=== PATIENT | female | born 1945 | race Hispanic/Latino ===

== ENCOUNTER 2017-01-17 14:41 | Inpatient (IN) | payer MEDICARE ==
[2017-01-17 16:34] LABS: Basophils % (Auto) 0.6 % (0.0-1.8); Eosinophils % (Auto) 1.3 % (0.0-4.3); Hematocrit 41.8 % (30.3-42.9); Hemoglobin 13.8 gm/dl (10.1-14.3); Mean Corpuscular HGB Conc 33 % (30-34); Mean Corpuscular Hemoglobin 30 pg (28-32); Mean Corpuscular Volume 89 fl (79-97); Platelet Count 245 K/mm3 (140-440); Red Blood Count 4.67 M/mm3 (3.65-5.03); Red Cell Distribution Width 14.4 % (13.2-15.2); White Blood Count 9.2 K/mm3 (4.5-11.0)
--- NOTE | 2017-01-17 16:34 | Emergency Department Report ---
Entered by DANICA GEORGE, acting as scribe for HEAVENLY JAIMES PA. Chief Complaint: Extremity Injury, Upper Stated Complaint: LEFT ARM PAIN/NUMBNESS/DIZZINESS - HPI History of Present Illness: Pt c/o left arm numbness and pain that began today at 12:00. Rates left arm pain a 5/10 in severity. Pt also c/o dizziness. Pt states she felt pressure in her head during the onset of symptoms, but currently denies pressure in her head. Reports SOB. Denies headache. Denies vision changes. Denies confusion. Denies altered mental status. Took 2 tablets of aspirin with no relief of symptoms. PMHx of HTN and hypothyroidism PSHx of cardiac pacemaker. Denies ID and CVA Notes PFHx of heart problems - ROS Review of Systems: All systems are negative unless stated in HPI above. - Exam Vital Signs: Vital Signs 01/17/17 15:41 Temperature 98.2 F Pulse Rate 82 Respiratory 18 Rate Blood Pressure 187/97 O2 Sat by Pulse 98 Oximetry Physical Exam: General: 71 y/o female that is well nourished, well developed, nontoxic in appearance, and in no acute distress Cardiovascular: S1/S2 regular rate and rhythm Respiratory: Clear to auscultation bilaterally, no rhonchi, wheezes, or rales. Neurologic: No focal deficit. 5/5 strength in all extremities. patient is alert and oriented to place, person and time. patient is ambulatory with normal gait and has fluid speech. MSE screening note: Focused history and physical exam performed. Due to findings the following was ordered: ED Medical Decision Making - Medical Decision Making Patient was seen by provider in triage area. ED Disposition for MSE Condition: Stable This documentation as recorded by the scribe,DANICA GEORGE,accurately reflects the service I personally performed and the decisions made by FIONA carbajal AHMAD R. PA.
[2017-01-17 16:48] LABS: Anion Gap 22 mmol/L; Blood Urea Nitrogen 16 mg/dL (7-17); Calcium 9.6 mg/dL (8.4-10.2); Carbon Dioxide 22 mmol/L (22-30); Chloride 98.2 mmol/L (98-107); Glucose 91 mg/dL (65-100); Potassium 4.3 mmol/L (3.6-5.0); Sodium 138 mmol/L (137-145)
[2017-01-17 17:52] LABS: Creatine Kinase MB 6.7 ng/mL (0.0-4.0)
[2017-01-17] MEDS ORDERED: BABY ASPIRIN PO ONE (19:44)
--- NOTE | 2017-01-17 20:03 | Emergency Department Report ---
ED Chest Pain HPI - General Chief Complaint: Extremity Injury, Upper Stated Complaint: LEFT ARM PAIN/NUMBNESS/DIZZINESS Time Seen by Provider: 01/17/17 19:44 Source: patient Mode of arrival: Ambulatory Limitations: No Limitations - History of Present Illness Initial Comments: 71-year-old female with history of hypertension, mitral prolapse, permanent pacemaker presented today because of left-sided chest discomfort for radiating down to the left arm. Symptoms started around 12:30 PM when she was sitting at her desk. This was not associated with any nausea or vomiting or diaphoresis or shortness of breath. Patient describes the symptoms as numbness but when further questioned there is no decrease in sensation or pins and needle sensation in his more like a pain/discomfort. She has no numbness or weakness in any extremity or difficulty walking or talking. She's had a cardiac cath in the remote past without any stents placed. - Related Data Home Medications Medication Instructions Recorded Confirmed Last Taken Ascorbic Acid [Vitamin C] 1,000 mg PO DAILY 01/17/17 01/17/17 Unknown Aspirin [Aspirin BABY CHEW TAB] 81 mg PO QDAY 01/17/17 01/17/17 Unknown Calcium Carbonate [Calcium] 500 mg PO DAILY 01/17/17 01/17/17 Unknown Ergocalciferol(Vitamin D2)(Nf) 400 unit PO DAILY 01/17/17 01/17/17 Unknown [Vitamin D (Nf)] Levothyroxine [Synthroid] 150 mcg PO QAM 01/17/17 01/17/17 Unknown Metoprolol [Lopressor] 25 mg PO DAILY 01/17/17 01/17/17 Unknown Sprakers-3 Fatty Acids/Fish Oil [Fish 1 each PO DAILY 01/17/17 01/17/17 Unknown Oil] Valsartan 40 mg PO DAILY 01/17/17 01/17/17 Unknown Vitamin B Complex 1 each PO DAILY 01/17/17 01/17/17 Unknown Vitamin E 1,000 unit PO DAILY 01/17/17 01/17/17 Unknown Allergies Allergy/AdvReac Type Severity Reaction Status Date / Time No Known Allergies Allergy Unverified 01/17/17 15:41 ELIO score - Elio Score Age > 65: (1) Yes Aspirin use within the Past 7 Days: (1) Yes 3 or more CAD Risk Factors: (1) Yes 2 or more Angina events in past 24 hrs: (0) No Known CAD with more than 50% Stenosis: (0) No Elevated Cardiac Markers: (1) Yes ST Deviation Greater than 0.5mm: (0) No ELIO Score: 4 ED Review of Systems ROS: Stated complaint: LEFT ARM PAIN/NUMBNESS/DIZZINESS Other details as noted in HPI Comment: All other systems reviewed and negative Constitutional: denies: chills, fever Respiratory: denies: cough Cardiovascular: chest pain Gastrointestinal: denies: vomiting Genitourinary: denies: dysuria Skin: denies: rash Neurological: denies: headache Psychiatric: denies: anxiety ED Past Medical Hx - Past Medical History Previous Medical History?: Yes Hx Hypertension: Yes Additional medical history: pacemaker, hypothyroid - Surgical History Past Surgical History?: Yes Additional Surgical History: pacemaker - Social History Smoking Status: Never Smoker Substance Use Type: Prescribed - Medications Home Medications: Home Medications Medication Instructions Recorded Confirmed Last Taken Type Ascorbic Acid [Vitamin C] 1,000 mg PO DAILY 01/17/17 01/17/17 Unknown History Aspirin [Aspirin BABY CHEW TAB] 81 mg PO QDAY 01/17/17 01/17/17 Unknown History Calcium Carbonate [Calcium] 500 mg PO DAILY 01/17/17 01/17/17 Unknown History Ergocalciferol(Vitamin D2)(Nf) 400 unit PO DAILY 01/17/17 01/17/17 Unknown History [Vitamin D (Nf)] Levothyroxine [Synthroid] 150 mcg PO QAM 01/17/17 01/17/17 Unknown History Metoprolol [Lopressor] 25 mg PO DAILY 01/17/17 01/17/17 Unknown History Sprakers-3 Fatty Acids/Fish Oil [Fish 1 each PO DAILY 01/17/17 01/17/17 Unknown History Oil] Valsartan 40 mg PO DAILY 01/17/17 01/17/17 Unknown History Vitamin B Complex 1 each PO DAILY 01/17/17 01/17/17 Unknown History Vitamin E 1,000 unit PO DAILY 01/17/17 01/17/17 Unknown History ED Physical Exam - General Limitations: No Limitations General appearance: alert, in no apparent distress - Head Head exam: Present: atraumatic - Eye Eye exam: Present: PERRL - Respiratory Respiratory exam: Present: normal lung sounds bilaterally. Absent: respiratory distress - Cardiovascular Cardiovascular Exam: Present: regular rate, normal rhythm - GI/Abdominal GI/Abdominal exam: Present: soft. Absent: distended, tenderness - Neurological Exam Neurological exam: Present: alert, oriented X3, CN II-XII intact. Absent: motor sensory deficit - Psychiatric Psychiatric exam: Present: normal affect - Skin Skin exam: Present: intact ED Course Vital Signs 01/17/17 01/17/17 15:41 20:12 Temperature 98.2 F Pulse Rate 82 Respiratory 18 20 Rate Blood Pressure 187/97 O2 Sat by Pulse 98 100 Oximetry - Consultations Consultation #1: 01/17/17 20:20 Dr. Alegre, covering for Dr. Noonan who is patient's housing specialist, explained patient's presentation and exam and lab results, will see the patient tomorrow. ED Medical Decision Making - Lab Data Result diagrams: 01/17/17 16:02 01/17/17 16:02 - Medical Decision Making patient states she took 2 x aspirin full dose prior to arrival Labs, EKG, chest x-ray had been ordered at triage, EKG shows atrially paced rhythm at [address]-T changes Labs show a positive troponin on the second set Will admit Critical care attestation.: If time is entered above; I have spent that time in minutes in the direct care of this critically ill patient, excluding procedure time. ED Disposition Clinical Impression: NSTEMI (non-ST elevated myocardial infarction) Disposition: OP ADMITTED IP TO THIS HOSP Is pt being admited?: Yes Condition: Serious Referrals: SABINE BRUMFIELD JR, MD [Primary Care Provider] - 3-5 Days Time of Disposition: 20:09 (Spoke to Dr. Huddleston)
--- NOTE | 2017-01-17 20:31 | Admit Criteria Form ---
Admission Criteria Documentation: MYOCARDIAL INFARCTION Clinical Indications for Admission to Inpatient Care (Place 'X' for any and all applicable criteria): Admission is indicated for 1 or more of the following (1)(2)(3)(4): [ X]I. Acute ND [ ]II. Contraindications and/or Inappropriate clinical situations for Observational Care in patients with Myocardial Infarction, when ANY ONE of the following is required: [ ]a) Patient with High risk of cardiac embolism (e.g, patients with previous cardiac embolism, LVEF < 40%, age >75 and patients with prosthetic valve) 18 [ ]b) Patient with Moderate risk including DM patient, CAD and patient aged 65-75 18 [ ]c) Patient with any change in cardiac biomarker especially troponin should be managed as high risk in an inpatient setting 19 [ ]d) Physician judgement irrespective of ECG and other diagnostic findings 20 [X ]III.General contraindications and/or Inappropriate clinical situations for Observational Care in patients with Myocardial Infarction, when ANY ONE of the following is required: [ X]a) Prediction of prolongation of LOS based on ANY ONE of the following may be considered as a contraindication for observational care 2, 3, 4, 5, 6, 7, 8, 9, 10, 11 [ X]i) Age > 65 yrs. [ ]ii) Patient arriving by ambulance [ ]iii) Patient with high acuity [ ]iv) Patient requiring vital sign monitoring [ ]v) Patient on IV medication [ ]b) Systolic blood pressures greater than or equal to 180mmHg 3,12 [ ]c) Patient with altered mental status including delirium and other alteration of consciousness, (3) [ ]d) Patient whose discharge disposition will be to a retirement home or rehabilitation home should not be managed in Emergency Department Observation Unit. CMS rule requires 3 days hospital stay before such placement. 3,13 [ ]e) Patient with failure to thrive due to broad array of etiologies 3 ,16,17 [ ]f) Inability to ambulate 3,14 Extended stay beyond goal length of stay may be needed for (1)(18)(20)(24)(25): [ ]a) Hemodynamic instability, persisting symptoms after intensive medical management, or recurring severe, prolonged symptoms [ ]b) Intravascular procedural complications such as acute vessel closure, stent thrombosis, stent malposition, or vessel dissection (26)(27)(28) [ ]c) Extravascular procedural complications such as retroperitoneal hematoma , pericardial effusion, or cardiac tamponade [ ]d) Entry site complications causing bleeding, hematoma or distal ischemia and requiring ongoing monitoring, surgical repair or surgical thrombectomy. Dangerous arrhythmia [ ]e) Complicated percutaneous coronary intervention (e.g., unsuccessful percutaneous coronary intervention or percutaneous coronary intervention of non- [place] vessel) [ ]f) Urgent or emergent surgery for complications of ND (e.g., ventricular rupture, valvular insufficiency) [ ]g) Surgical revascularization via coronary artery bypass graft [ ]h) Heart failure (e.g., pulmonary edema) [ ]i) Unstable pulmonary comorbidities, including COPD or pneumonia (31) [ ]j) Acute renal failure The original [employer] content created by [employer] has been revised. The portions of the content which have been revised are identified through the use of italic text or in bold, and [employer] has neither reviewed nor approved the modified material. All other unmodified content is copyright [employer] Please see references footnoted in the original [employer] edition 2016 Admission Criteria Met: Yes
--- NOTE | 2017-01-17 21:27 | History and Physical Report ---
History of Present Illness Date of admission: 01/17/17 20:24 Chief complaint: My chest hurts History of present illness: 71 YO Female with with HTN, Hypothyroid, MVP presents to ED for evaluation. Pt states that she experienced acute onset chest pain while at work. Pain started at 1230hrs. Pain persistent, 6/10, localized to he left chest with radiation to her left arm, not worsened with exertion, or relieved with rest, or associated with meals. Pt denies prolonged immobility/travel, leg swelling, calf pain, individual/family history of DVT/PE, recent ill contacts, productive cough, unintentional weight loss, or night sweats. Past History Past Medical History: hypertension, hypothyroidism Past Surgical History: Other (Pacemaker placement) Social history: . denies: smoking, alcohol abuse, prescription drug abuse Family history: hypertension Medications and Allergies Allergies Allergy/AdvReac Type Severity Reaction Status Date / Time No Known Allergies Allergy Unverified 01/17/17 15:41 Home Medications Medication Instructions Recorded Confirmed Last Taken Type Ascorbic Acid [Vitamin C] 1,000 mg PO DAILY 01/17/17 01/17/17 Unknown History Aspirin [Aspirin BABY CHEW TAB] 81 mg PO QDAY 01/17/17 01/17/17 Unknown History Calcium Carbonate [Calcium] 500 mg PO DAILY 01/17/17 01/17/17 Unknown History Ergocalciferol(Vitamin D2)(Nf) 400 unit PO DAILY 01/17/17 01/17/17 Unknown History [Vitamin D (Nf)] Levothyroxine [Synthroid] 150 mcg PO QAM 01/17/17 01/17/17 Unknown History Metoprolol [Lopressor] 25 mg PO DAILY 01/17/17 01/17/17 Unknown History [place]-3 Fatty Acids/Fish Oil [Fish 1 each PO DAILY 01/17/17 01/17/17 Unknown History Oil] Valsartan 40 mg PO DAILY 01/17/17 01/17/17 Unknown History Vitamin B Complex 1 each PO DAILY 01/17/17 01/17/17 Unknown History Vitamin E 1,000 unit PO DAILY 01/17/17 01/17/17 Unknown History Active Meds: Active Medications Enoxaparin Sodium (Lovenox) 100 mg SUB-Q Q12HR JESUS MANUEL Review of Systems All systems: negative Cardiovascular: chest pain Exam - Constitutional Vitals: Temp Pulse Resp BP Pulse Ox 98.2 F 60 20 168/83 99 01/17/17 15:41 01/17/17 21:17 01/17/17 21:17 01/17/17 21:17 01/17/17 21:17 General appearance: Present: no acute distress, well-nourished - EENT Eyes: Present: PERRL ENT: hearing intact, clear oral mucosa - Neck Neck: Present: supple, normal ROM - Respiratory Respiratory effort: normal Respiratory: bilateral: CTA - Cardiovascular Heart Sounds: Present: S1 & S2. Absent: rub, click - Extremities Extremities: pulses symmetrical, No edema Peripheral Pulses: within normal limits - Abdominal General gastrointestinal: Present: soft, non-tender, non-distended, normal bowel sounds Female genitourinary: Present: normal - Integumentary Integumentary: Present: clear, warm, dry - Musculoskeletal Musculoskeletal: gait normal, strength equal bilaterally - Psychiatric Psychiatric: appropriate mood/affect, intact judgment & insight - Neurologic Neurologic: CNII-XII intact, moves all extremities Results - Labs CBC & Chem 7: 01/17/17 16:02 01/17/17 16:02 Assessment and Plan - Patient Problems (1) NSTEMI (non-ST elevated myocardial infarction) Current Visit: Yes Status: Acute Plan to address problem: Cardiology consulted, serial cardiac enzymes, ekg, telemetry, therapeutic anticoagulation, (2) Accelerated hypertension Current Visit: Yes Status: Acute Plan to address problem: monitor bp q shift, resume home medication, (3) Hypothyroid Current Visit: Yes Status: Acute Qualifiers: Hypothyroidism type: H Plan to address problem: resume current therapy, supportive care. (4) MVP (mitral valve prolapse) Current Visit: Yes Status: Chronic Plan to address problem: continue current therapy. (5) DVT prophylaxis Current Visit: Yes Status: Acute
[2017-01-17] MEDS ORDERED: SODIUM CHLORIDE FLUSH SYRINGE 10 ML IV PRN (22:18)
[2017-01-17] MEDS: LOVENOX SUB-Q SCH (22:49)
[2017-01-18] MEDS: SYNTHROID PO SCH (05:18)
[2017-01-18 06:22] LABS: Creatine Kinase MB 35.8 ng/mL (0.0-4.0)
--- NOTE | 2017-01-18 07:24 | XRay Report ---
ROUTINE CHEST, TWO VIEWS: HISTORY: Hypertension, dizziness, arm numbness. No recent comparison. A 2-lead pacemaker device appears in good position. Heart and mediastinal structures are within normal limits. There is normal pulmonary vascularity. The lungs are clear. No evidence for infiltrate, pleural effusion or pneumothorax. The bony structures are intact. Mild thoracic spondylosis is noted. IMPRESSION: No acute cardiopulmonary process identified.
[2017-01-18] MEDS: FISH OIL PO SCH (09:35)
[2017-01-18] MEDS: OSCAL PO SCH (09:35)
[2017-01-18] MEDS: VITAMIN C PO SCH (09:36)
[2017-01-18] MEDS: VITAMIN D3 PO SCH (09:37)
[2017-01-18] MEDS: ALLBEE WITH C PO SCH (09:37)
[2017-01-18] MEDS: LOVENOX SUB-Q SCH ×2 (09:38→22:50)
[2017-01-18] MEDS ORDERED: DIOVAN PO SCH (10:00)
[2017-01-18] MEDS ORDERED: LOPRESSOR PO SCH (10:00)
[2017-01-18] MEDS ORDERED: NACL 0.9% 500 ML 500 ML IV SCH (12:00)
[2017-01-18] MEDS ORDERED: ECOTRIN PO SCH (12:00)
[2017-01-18] MEDS ORDERED: ECOTRIN PO ONE (12:13)
[2017-01-18] MEDS ORDERED: NACL 0.9% 500 ML 500 ML ONE (12:26)
[2017-01-18] MEDS ORDERED: HEPARIN 10,000 UNITS/10 ML ONE (12:37)
[2017-01-18] MEDS ORDERED: HEPARIN/NS 5000 UNIT/500ML(CATH LAB) 1,000 ML IR ONE (12:37)
[2017-01-18] MEDS ORDERED: XYLOCAINE 2% INFILTRATI ONE (12:37)
[2017-01-18] MEDS ORDERED: SUBLIMAZE ONE (12:37)
[2017-01-18] MEDS ORDERED: VERSED ONE (12:45)
--- NOTE | 2017-01-18 13:19 | Consultation ---
History of Present Illness Consult date: 01/18/17 Consult reason: abnormal cardiac enzymes, chest pain History of present illness: Patient is a 71-year-old woman who presented with chest pain. ECG was normal sinus rhythm normal ECG with no ischemic changes, but cardiac enzymes were elevated. Specifically, the CK-MB was elevated at 35, with the index of 9.7%. This appeared consistent with a non-ST elevation myocardial infarction, prompting a cardiac consultation. The patient's prior cardiac history includes paroxysmal atrial tachycardia, status post dual-chamber pacemaker placement. A cardiac catheterization 12 years ago in 2004 demonstrated mild nonobstructive disease. Comorbidities include hypertension and hypothyroidism. After initial evaluation, we recommended that catheterization, which was done via the right femoral artery without complications. Cardiac catheterization today revealed diffuse moderate atherosclerosis of the LAD, mild diffuse atherosclerosis of the circumflex and right coronary arteries. Despite diffuse atherosclerosis, there were no focal obstructive lesions. Left ventricular ejection fraction was 50%. Past History Past Medical History: arrhythmia, CAD, hypertension, hypothyroidism Past Surgical History: Other (Pacemaker placement) Social history: . denies: smoking, alcohol abuse, prescription drug abuse Family history: hypertension Medications and Allergies Allergies Allergy/AdvReac Type Severity Reaction Status Date / Time No Known Allergies Allergy Unverified 01/17/17 15:41 Home Medications Medication Instructions Recorded Confirmed Last Taken Type Ascorbic Acid [Vitamin C] 1,000 mg PO DAILY 01/17/17 01/17/17 Unknown History Aspirin [Aspirin BABY CHEW TAB] 81 mg PO QDAY 01/17/17 01/17/17 Unknown History Calcium Carbonate [Calcium] 500 mg PO DAILY 01/17/17 01/17/17 Unknown History Ergocalciferol(Vitamin D2)(Nf) 400 unit PO DAILY 01/17/17 01/17/17 Unknown History [Vitamin D (Nf)] Levothyroxine [Synthroid] 150 mcg PO QAM 01/17/17 01/17/17 Unknown History Metoprolol [Lopressor] 50 mg PO DAILY 01/17/17 01/18/17 Unknown History [place]-3 Fatty Acids/Fish Oil [Fish 1 each PO DAILY 01/17/17 01/17/17 Unknown History Oil] Valsartan 40 mg PO DAILY 01/17/17 01/17/17 Unknown History Vitamin B Complex 1 each PO DAILY 01/17/17 01/17/17 Unknown History Vitamin E 1,000 unit PO DAILY 01/17/17 01/17/17 Unknown History Active Meds: Active Medications Ascorbic Acid (Vitamin C) 1,000 mg PO DAILY [facility] Last Admin: 01/18/17 09:36 Dose: 1,000 mg Aspirin (Ecotrin) 325 mg PO QDAY [facility] Calcium Carbonate/Glycine (Oscal) 1,250 mg PO DAILY [facility] Last Admin: 01/18/17 09:35 Dose: 1,250 mg Cholecalciferol (Vitamin D3) 400 unit PO DAILY [facility] Last Admin: 01/18/17 09:37 Dose: 400 unit Enoxaparin Sodium (Lovenox) 100 mg SUB-Q Q12HR [facility] Last Admin: 01/18/17 09:38 Dose: 100 mg Fish Oil (Fish Oil) 1,000 mg PO DAILY [facility] Last Admin: 01/18/17 09:35 Dose: 1,000 mg Sodium Chloride (Nacl 0.9% 500 Ml) 500 mls @ 50 mls/hr IV DIRECT [facility] Stop: 01/18/17 21:59 Last Admin: 01/18/17 12:45 Dose: 500 mls Levothyroxine Sodium (Synthroid) 150 mcg PO QAM@0600 [facility] Last Admin: 01/18/17 05:18 Dose: 150 mcg Metoprolol Tartrate (Lopressor) 25 mg PO DAILY [facility] Last Admin: 01/18/17 09:36 Dose: 25 mg Sodium Chloride (Sodium Chloride Flush Syringe 10 Ml) 10 ml IV PRN PRN PRN Reason: LINE FLUSH Valsartan (Diovan) 40 mg PO DAILY [facility] Last Admin: 01/18/17 09:36 Dose: 40 mg Vitamin B Complex/Vitamin C (Allbee With C) 1 each PO DAILY [facility] Last Admin: 01/18/17 09:37 Dose: 1 each Vitamin E (Vitamin E Cap) 1,000 unit PO DAILY [facility] Review of Systems Cardiovascular: chest pain, shortness of breath, no orthopnea, no palpitations, no rapid/irregular heart beat, no edema, no syncope, no lightheadedness Physical Examination Vital Signs Temp Pulse Resp BP Pulse Ox 98.2 F 82 18 187/97 98 01/17/17 15:41 01/17/17 15:41 01/17/17 15:41 01/17/17 15:41 01/17/17 15:41 General appearance: no acute distress HEENT: Positive: PERRL Neck: Positive: neck supple Cardiac: Positive: Reg Rate and Rhythm Lungs: Positive: clear to auscultation Neuro: Positive: Grossly Intact Abdomen: Positive: Soft Female genitourinary: deferred Skin: Positive: Clear Extremities: Absent: edema Results 01/17/17 16:02 01/17/17 16:02 Cardiac Enzymes 01/18/17 Range/Units 05:26 CK-MB (CK-2) 35.8 H (0.0-4.0) ng/mL EKG interpretations - Telemetry EKG Rhythm: Sinus Rhythm Assessment and Plan - Patient Problems (1) NSTEMI (non-ST elevated myocardial infarction) Current Visit: Yes Status: Acute Plan to address problem: Cardiac catheterization today revealed diffuse moderate atherosclerosis of the LAD, mild diffuse atherosclerosis of the circumflex and right coronary arteries. Despite diffuse atherosclerosis, there were no focal obstructive lesions. Left ventricular ejection fraction was 50% In addition to risk factor aggressive modification, the patient will be treated medically for her coronary artery disease. This would include beta blockers, nitrates, Plavix, aspirin and statin therapy. If no further medical problems, will anticipate discharge tomorrow medications.
[2017-01-18 13:24] LABS: INR 1.06 (0.87-1.13)
[2017-01-18] MEDS ORDERED: NACL 0.9% 1000 ML 1,000 ML IV SCH (14:00)
[2017-01-18] MEDS ORDERED: IMDUR PO SCH (14:00)
--- NOTE | 2017-01-18 15:34 | Cardiac Catherization Report ---
REASON FOR PROCEDURE: The patient is a 71-year-old woman who presented with chest pain, with cardiac enzyme elevation, CKMB was 32, index 9.7%. She was diagnosed as non-ST elevation myocardial infarction and cardiac catheterization was recommended. PROCEDURE: Left heart catheterization, coronary angiography, and left ventricle angiography. The patient was prepped and draped in a sterile fashion after informed consent. Right femoral artery was entered using the Seldinger technique followed by placement of a 6-Icelandic sheath. Selective left and right coronary angiography was performed using #4 right and left Sheridan catheters. The pigtail catheter was used for left ventricle angiography. The catheters were removed, sheath removed, and hemostasis achieved using manual compression. The patient was returned to the postprocedure unit in stable condition. There were no complications. FINDINGS: HEMODYNAMICS: Left ventricle end diastolic pressure was 14, following coronary angiography. Ascending aortic pressure 126/63. There was no significant pressure gradient on pullback across the aortic valve. CORONARY ANGIOGRAPHY: The left main coronary artery contained mild luminal irregularities. The left anterior descending artery and its diagonal branches contained diffuse mild to moderate atherosclerosis involving the proximal, mid, and distal segments of the LAD and diagonal branches. No severe obstructive lesions were noted. The circumflex consists of 1 large obtuse marginal, which contained diffuse mild atherosclerosis. The right coronary artery was dominant. These vessels similarly contained diffuse mild atherosclerosis of the proximal and mid AV groove segment. There was a 50-60% ostial narrowing of a large right ventricular branch, which supplied the left ventricular apex. The AV groove, right coronary then terminated in a large posterior left ventricular branch. Despite diffuse 3 vessel atherosclerosis as noted above, no focal severe obstructive lesions were noted in either left or right coronary arteries. Left ventricular systolic function was at the lower limits of normal, estimated ejection fraction 50%. CONCLUSION: 1. Diffuse [id number] nonobstructive atherosclerosis as above. 2. Left ventricular systolic function at the lower limits of normal, ejection fraction 50%. RECOMMENDATION: 1. Aggressive risk factor modification. 2. Medical therapy for coronary artery disease. JOB# [id number] CA/NTS
--- NOTE | 2017-01-18 15:53 | Progress Note ---
Assessment and Plan Assessment and plan: Patient is a 71-year-old woman with a history of atrial tachycardia status post dual-chamber pacemaker, coronary artery disease, hypertension and hypothyroidism who presents with chest pain. She was found have a NSTEMI and sent to cardiac catheterization lab which showed diffuse moderate atherosclerosis of the LAD, mild diffuse atherosclerosis of the circumflex and right coronary arteries. Despite diffuse atherosclerosis there were no focal lesions. Left ventricular ejection fraction was 50% -NSTEMI with multivessel coronary artery disease -Accelerated Hypertension: optimized antihypertensive -Hypothyroidism: Check TSH Full code Disposition: Anticipate discharge tomorrow History Interval history: Patient seen and examined. Follow up on chest pain. Overnight uneventful. No cp , sob, n/v or severe headaches. Imaging, old records, testing, labs, nursing notes reviewed. Hospitalist Physical - Physical exam Narrative exam: GEN: WDWN, NAD, AWAKE, ALERT, ORIENTATED 3 HEENT: NCAT, PERRL, EOMI, OP CLEAR NECK: SUPPLE, NO THYROMEGALY, NO JVD, NO LAD CVS: RRR, NORMAL S1S2 LUNGS/CHEST: CTA B, NORMAL CHEST EXPANSION B, GOOD AIR ENTRY B ABD: SOFT NTND, GBS, NO REBOUND OR GUARDING EXT/SKIN: NO SIGNIFICANT EDEMA OR RASH MSK: FROM X 4 EXTREMITIES NEURO: CN 2-12 GROSSLY INTACT, NO FOCAL DEFICITS PSY: CALM - Constitutional Vitals: Temp Pulse Resp BP Pulse Ox 97.5 F L 60 14 115/69 95 01/18/17 10:18 01/18/17 15:43 01/18/17 15:43 01/18/17 15:43 01/18/17 15:43 General appearance: Present: no acute distress Results - Labs CBC & Chem 7: 01/17/17 16:02 01/17/17 16:02 Labs: Laboratory Last Values WBC 9.2 K/mm3 (4.5-11.0) 01/17/17 16:02 RBC 4.67 M/mm3 (3.65-5.03) 01/17/17 16:02 Hgb 13.8 gm/dl (10.1-14.3) 01/17/17 16:02 Hct 41.8 % (30.3-42.9) 01/17/17 16:02 MCV 89 fl (79-97) 01/17/17 16:02 MCH 30 pg (28-32) 01/17/17 16:02 MCHC 33 % (30-34) 01/17/17 16:02 RDW 14.4 % (13.2-15.2) 01/17/17 16:02 Plt Count 245 K/mm3 (140-440) 01/17/17 16:02 Lymph % (Auto) 33.5 % (13.4-35.0) 01/17/17 16:02 [place] % (Auto) 7.1 % (0.0-7.3) 01/17/17 16:02 Eos % (Auto) 1.3 % (0.0-4.3) 01/17/17 16:02 Baso % (Auto) 0.6 % (0.0-1.8) 01/17/17 16:02 Lymph # 3.1 K/mm3 (1.2-5.4) 01/17/17 16:02 [place] # 0.7 K/mm3 (0.0-0.8) 01/17/17 16:02 Eos # 0.1 K/mm3 (0.0-0.4) 01/17/17 16:02 Baso # 0.1 K/mm3 (0.0-0.1) 01/17/17 16:02 Seg Neutrophils % 57.5 % (40.0-70.0) 01/17/17 16:02 Seg Neutrophils # 5.3 K/mm3 (1.8-7.7) 01/17/17 16:02 PT 13.7 Sec. (12.2-14.9) 01/18/17 12:50 INR 1.06 (0.87-1.13) 01/18/17 12:50 Sodium 138 mmol/L (137-145) 01/17/17 16:02 Potassium 4.3 mmol/L (3.6-5.0) 01/17/17 16:02 Chloride 98.2 mmol/L (98-107) 01/17/17 16:02 Carbon Dioxide 22 mmol/L (22-30) 01/17/17 16:02 Anion Gap 22 mmol/L 01/17/17 16:02 BUN 16 mg/dL (7-17) 01/17/17 16:02 Creatinine 0.5 mg/dL (0.7-1.2) L 01/17/17 16:02 Estimated GFR > 60 ml/min 01/17/17 16:02 BUN/Creatinine Ratio 32.00 % 01/17/17 16:02 Glucose 91 mg/dL (65-100) 01/17/17 16:02 Calcium 9.6 mg/dL (8.4-10.2) 01/17/17 16:02 Total Creatine Kinase 370 units/L (30-135) H 01/18/17 05:26 CK-MB (CK-2) 35.8 ng/mL (0.0-4.0) H 01/18/17 05:26 CK-MB (CK-2) Rel Index 9.6 (0-4) H 01/18/17 05:26 Troponin T 0.966 ng/mL (0.00-0.029) H* 01/18/17 05:26 Triglycerides 57 mg/dL (2-149) 01/17/17 19:07 Cholesterol 150 mg/dL (50-199) 01/17/17 19:07 LDL Cholesterol Direct 87 mg/dL (50-130) 01/17/17 19:07 HDL Cholesterol 52 mg/dL (40-59) 01/17/17 19:07 Cholesterol/HDL Ratio 2.88 % 01/17/17 19:07
[2017-01-18] MEDS: LOPRESSOR PO SCH (18:28)
[2017-01-18] MEDS: VITAMIN E CAP PO SCH (18:33)
[2017-01-19] MEDS: LOPRESSOR PO SCH
[2017-01-19] MEDS: SYNTHROID PO SCH (05:36)
[2017-01-19 05:59] LABS: Hematocrit 35.3 % (30.3-42.9); Hemoglobin 11.8 gm/dl (10.1-14.3); Mean Corpuscular HGB Conc 33 % (30-34); Mean Corpuscular Hemoglobin 30 pg (28-32); Mean Corpuscular Volume 90 fl (79-97); Platelet Count 211 K/mm3 (140-440); Red Blood Count 3.91 M/mm3 (3.65-5.03); Red Cell Distribution Width 14.5 % (13.2-15.2); White Blood Count 8.2 K/mm3 (4.5-11.0)
[2017-01-19 06:52] LABS: Anion Gap 19 mmol/L; BUN/Creatinine Ratio 26.66; Blood Urea Nitrogen 16 mg/dL (7-17); Calcium 8.5 mg/dL (8.4-10.2); Carbon Dioxide 22 mmol/L (22-30); Chloride 101.4 mmol/L (98-107); Glucose 104 mg/dL (65-100); Sodium 138 mmol/L (137-145)
[2017-01-19] MEDS ORDERED: HALFPRIN EC PO SCH (10:00)
[2017-01-19] MEDS ORDERED: PLAVIX PO SCH (10:00)
--- NOTE | 2017-01-19 10:15 | Progress Note ---
Assessment and Plan NSTEMI C revealed diffuse moderate atherosclerosis of the LAD, mild diffuse atherosclerosis of the circumflex and right coronary arteries. Despite diffuse atherosclerosis, there were no focal obstructive lesions. Left ventricular ejection fraction was 50%. Paroxysmal atrial tachycardia Presence of dual-chamber pacemaker placement Hypertension Hypothyroidism Recommendations: Continue current medical therapy for her non-obstructive coronary disease. F/U with [facility] within 1 week of discharge. Subjective Date of service: 01/19/17 Interval history: Patient has no complaints. She denies chest pain and shortness of breath. No hematoma of cath site. Objective Vital Signs Temp Pulse Pulse Pulse Pulse Resp BP 01/19/17 08:00 97.8 F 60 18 01/19/17 05:37 98.2 F 63 20 01/18/17 23:10 97.5 F L 60 20 01/18/17 22:45 98.1 F 86 86 18 01/18/17 22:00 62 62 62 18 01/18/17 21:15 01/18/17 21:03 97.5 F L 70 20 108/57 01/18/17 18:42 63 14 144/70 01/18/17 17:42 64 14 146/78 01/18/17 16:42 60 14 114/68 01/18/17 16:12 69 16 117/60 01/18/17 15:43 60 14 115/69 01/18/17 15:28 60 14 103/66 01/18/17 15:13 60 14 111/65 01/18/17 14:58 63 14 110/63 01/18/17 14:43 60 14 101/67 01/18/17 14:28 61 14 98/61 01/18/17 14:13 62 14 96/64 01/18/17 10:18 97.5 F L 64 18 140/69 BP Pulse Ox 01/19/17 08:00 90/58 95 01/19/17 05:37 92/55 98 01/18/17 23:10 96/54 95 01/18/17 22:45 93/59 01/18/17 22:00 01/18/17 21:15 95 01/18/17 21:03 93 01/18/17 18:42 97 01/18/17 17:42 98 01/18/17 16:42 98 01/18/17 16:12 97 01/18/17 15:43 95 01/18/17 15:28 96 01/18/17 15:13 96 01/18/17 14:58 97 01/18/17 14:43 96 01/18/17 14:28 98 01/18/17 14:13 96 01/18/17 10:18 97 - Physical Examination General: No Apparent Distress HEENT: Positive: PERRL Neck: Positive: neck supple Cardiac: Positive: Reg Rate and Rhythm Lungs: Positive: Normal Breath Sounds Neuro: Positive: Grossly Intact Incision: Cardiac Cath Site Extremities: Absent: edema - Labs and Meds Coagulation 01/18/17 Range/Units 12:50 PT 13.7 (12.2-14.9) Sec. INR 1.06 (0.87-1.13) CBC 01/19/17 Range/Units 05:00 WBC 8.2 (4.5-11.0) K/mm3 RBC 3.91 (3.65-5.03) M/mm3 Hgb 11.8 (10.1-14.3) gm/dl Hct 35.3 D (30.3-42.9) % Plt Count 211 (140-440) K/mm3 Comprehensive Metabolic Panel 01/19/17 Range/Units 05:00 Sodium 138 (137-145) mmol/L Potassium 4.0 (3.6-5.0) mmol/L Chloride 101.4 (98-107) mmol/L Carbon Dioxide 22 (22-30) mmol/L BUN 16 (7-17) mg/dL Creatinine 0.6 L (0.7-1.2) mg/dL Glucose 104 H (65-100) mg/dL Calcium 8.5 (8.4-10.2) mg/dL
--- NOTE | 2017-01-19 10:20 | Discharge Summary ---
Providers - Providers Date of Admission: 01/17/17 20:24 Date of discharge: 01/19/17 Attending physician: RANJIT CHO 01/17/17 Consult to Cardiac Rehabilitation [CONS] Routine Reason For Exam: Phase I 01/18/17 09:28 Consult to Physician [CONS] Routine Consulting Provider: JOSH WELLINGTON Reason For Exam: Nstemi Place consult to:: [facility] Notified:: [email or web address] Was contact made?: Yes Time called:: 09:47 01/18/17 13:23 Consult to Cardiac Rehabilitation [CONS] Routine Reason For Exam: Cardiac Rehab Evaluation Primary care physician: SABINE BRUMFIELD Hospitalization Condition: Stable Hospital course: Patient is a 71-year-old woman with a history of atrial tachycardia status post dual-chamber pacemaker, coronary artery disease, hypertension and hypothyroidism who presents with chest pain. She was found have a NSTEMI and sent to cardiac catheterization lab which showed diffuse moderate atherosclerosis of the LAD, mild diffuse atherosclerosis of the circumflex and right coronary arteries. Despite diffuse atherosclerosis there were no focal lesions. Left ventricular ejection fraction was 50%. -NSTEMI with multivessel coronary artery disease: new meds are imdur, plavix, lipitor -Accelerated Hypertension: optimized antihypertensive -Hypothyroidism: Checked TSH, normal -Borderline low bp, started on Imdur, will need to adjust other hypertensives or stop, I called Cardiology, Dr. Alegre to discuss, left message==>stop madelyn Full code Disposition: home Disposition: DISCHARGED TO HOME OR SELFCARE Time spent for discharge: 32 min Core Measure Documentation - Palliative Care Palliative Care/ Comfort Measures: Not Applicable - Core Measures Any of the following diagnoses?: acute [place] - VTE Discharge Requirements Deep Vein Thrombosis/Pulmonary Embolism Present on Admission: No Has pt received <5 days of overlap therapy or INR<2.0: No Anticoagulant overlap therapy prescribed at discharge: No Contraindication No Overlap Therapy order at DC: Not Indicated - Acute [place] Discharge Requirements Aspirin at discharge: Yes ALICE/ARB for LVSD if EF <40%: Yes Beta sirena at discharge: Yes Statin for LDL = or >100 mg/dl on DC: Yes Exam - Physical Exam Narrative exam: GEN: WDWN, NAD, AWAKE, ALERT, ORIENTATED 3 HEENT: NCAT, PERRL, EOMI, OP CLEAR NECK: SUPPLE, NO THYROMEGALY, NO JVD, NO LAD CVS: RRR, NORMAL S1S2 LUNGS/CHEST: CTA B, NORMAL CHEST EXPANSION B, GOOD AIR ENTRY B ABD: SOFT NTND, GBS, NO REBOUND OR GUARDING EXT/SKIN: NO SIGNIFICANT EDEMA OR RASH MSK: FROM X 4 EXTREMITIES NEURO: CN 2-12 GROSSLY INTACT, NO FOCAL DEFICITS PSY: CALM - Constitutional Vitals: Temp Pulse Resp BP Pulse Ox 97.8 F 60 18 90/58 95 01/19/17 08:00 01/19/17 08:00 01/19/17 08:00 01/19/17 08:00 01/19/17 08:00 Plan Activity: advance as tolerated (no strenous activites until cleared by PCP. ) Diet: low salt Special Instructions: record daily BP diary Additional Instructions: Stop Diovan/valsartan Follow up with: SABINE BRUMFIELD JR, MD [Primary Care Provider] - 3-5 Days Forms: CardCath PCI D/C Instructions Prescriptions: AtorvaSTATin [Lipitor] 40 mg PO QHS #30 tablet Clopidogrel [Plavix] 75 mg PO QDAY #30 tablet ISOSORBIDE MONOnitrate [Imdur ER] 30 mg PO QDAY #30 tablet Metoprolol [Lopressor TAB] 25 mg PO BID #60 tablet
[2017-01-19] MEDS: FISH OIL PO SCH (10:33)
[2017-01-19] MEDS: VITAMIN D3 PO SCH (10:36)
[2017-01-19] MEDS: VITAMIN C PO SCH (10:36)
[2017-01-19] MEDS: ALLBEE WITH C PO SCH (10:37)
[2017-01-19] MEDS: VITAMIN E CAP PO SCH (10:37)
[2017-01-19] MEDS: LOVENOX SUB-Q SCH (10:38)
[2017-01-19] MEDS: OSCAL PO SCH (10:38)
[2017-01-19 13:49] VITALS: BP 122/71
== END 2017-01-19 15:37 | disposition home or self-care (01) | DRG 282 ==
LOC: ED 14:41 → 4A 20:24
PROVIDERS: ADMIT Internal Medicine; ATTEND Internal Medicine
PROC: 4A023N7 Measurement of Cardiac Sampling and Pressure, Left Heart, Percutaneous Approach (ICD-10-PCS; principal; 2017-01-18)
PROC: B2111ZZ Fluoroscopy of Multiple Coronary Arteries using Low Osmolar Contrast (ICD-10-PCS; 2017-01-18)
PROC: B2151ZZ Fluoroscopy of Left Heart using Low Osmolar Contrast (ICD-10-PCS; 2017-01-18)
DX: I21.4 Non-ST elevation (NSTEMI) myocardial infarction (principal); I10 Essential (primary) hypertension; E03.9 Hypothyroidism, unspecified; I25.10 Atherosclerotic heart disease of native coronary artery without angina pectoris; I34.1 Nonrheumatic mitral (valve) prolapse; Z95.0 Presence of cardiac pacemaker; Z79.82 Long term (current) use of aspirin; Z79.899 Other long term (current) drug therapy; Z82.49 Family history of ischemic heart disease and other diseases of the circulatory system
CPT/HCPCS: 36415; 71020; 80048; 80061; 82550; 82553; 84443; 84484; 85025; 85027; 85610; 93005; 93010; 93306; 93458; 94760; A9270-GY; C1894; J1644; J1650; J2250; J3010; J7030; J7040; Q9967